=== PATIENT | female | born 1945 | race Caucasian/White ===

== ENCOUNTER 2016-05-30 05:49 | Inpatient (IN) | payer MEDICARE, OTHER ==
[2016-05-21 13:52] VITALS: Ht 170.2 cm; Wt 62.1 kg
[2016-05-21 16:42] VITALS: BP_SYST 142; RESP 18; TEMP 98.5
[2016-05-30] VITALS (18 sets, daily range): BP systolic 98–200; RESP 11–20; TEMP 97.2–98.6
[~2016-05-30] VITALS: Ht 170.2 cm; Wt 62.1 kg
[2016-05-30] MEDS ORDERED: CEFAZOLIN 2,000 MG in SODIUM CHLORIDE 0.9% 100 ML IV ONE (06:15)
[2016-05-30] MEDS ORDERED: ONDANSETRON 4 MG VIAL IV ONE (07:00)
[2016-05-30] MEDS ORDERED: SCOPOLAMINE PATCH TRANSDERM ONE (07:00)
[2016-05-30] MEDS ORDERED: LACT RINGERS 1,000 ML IV SCH (07:00)
[2016-05-30] MEDS ORDERED: GLYCOPYRROLATE 0.2 MG/ML VIAL IV ONE ×2 (07:00→11:56)
[2016-05-30] MEDS ORDERED: DEXAMETHASONE 4 MG/ML VIAL IV ONE (07:00)
[2016-05-30] MEDS ORDERED: MIDAZOLAM 2 MG/2 ML INJ IV ONE (07:00)
[2016-05-30] MEDS ORDERED: LIDOCAINE 1% BUFFERED 1 ML SYR INTRADERM PRN (07:00)
[2016-05-30] MEDS ORDERED: MORPHINE 2 MG/ML SYR IV PRN ×3 (08:00→14:00)
[2016-05-30] MEDS ORDERED: MEPERIDINE 25 MG/ML IV PRN (08:00)
[2016-05-30] MEDS ORDERED: DILAUDID 1 MG/ML AMP IV PRN ×2 (08:00→15:30)
[2016-05-30] MEDS ORDERED: MORPHINE 4 MG/ML SYR IV PRN (08:00)
[2016-05-30] MEDS ORDERED: OXYCODONE 5 MG TAB PO PRN ×2 (08:00→08:40)
[2016-05-30] MEDS ORDERED: ONDANSETRON 4 MG VIAL IV PRN ×2 (08:40→15:25)
[2016-05-30] MEDS ORDERED: NEB-ALBUTEROL 2.5 MG/3 ML INH PRN (08:40)
[2016-05-30] MEDS ORDERED: SALINE FLUSH 10 ML FLUSH PRN (08:40)
[2016-05-30] MEDS: ONDANSETRON 4 MG VIAL IV PRN ×3 (08:55→14:11)
[2016-05-30] MEDS ORDERED: amLODIPine 5 MG TAB PO SCH (09:00)
[2016-05-30] MEDS ORDERED: METOPROLOL TART 100 MG TAB PO SCH (09:00)
[2016-05-30] MEDS: CALCITRIOL 0.25 MCG CAP PO SCH (09:00)
[2016-05-30] MEDS ORDERED: METOCLOPRAMIDE 10 MG/2 ML VIAL ONE (09:59)
[2016-05-30] MEDS ORDERED: METOCLOPRAMIDE 10 MG/2 ML VIAL IV PUSH ONE (10:05)
[2016-05-30] MEDS ORDERED: BUPIVACA/EPI 0.25% PF 30ML NERVEBLOCK ONE (11:22)
[2016-05-30] MEDS ORDERED: LIDOCAINE 1% 20ML NERVEBLOCK ONE (11:22)
[2016-05-30] MEDS ORDERED: hePARIN 1,000 UNITS/ML (PORCINE) 10 ML IV ONE (11:22)
[2016-05-30] MEDS ORDERED: ROCURONIUM 50 MG VIAL IV ONE (11:56)
[2016-05-30] MEDS ORDERED: LIDOCAINE 2% SYR 5 ML IV ONE (11:56)
[2016-05-30] MEDS ORDERED: FENTANYL 100 MCG/2 ML AMP IV ONE (11:56)
[2016-05-30] MEDS ORDERED: NEOSTIGMINE 10 MG/10 ML VIAL IV ONE (11:56)
[2016-05-30] MEDS ORDERED: PROPOFOL 20 ML VIAL IV ONE (11:56)
[2016-05-30] MEDS: SEVELAMER HCL 800 MG TAB PO SCH ×2 (12:00→17:00)
[2016-05-30] MEDS ORDERED: ALBUMIN HUMAN 25GM (25%) 100 ML IV PRN (15:25)
[2016-05-30] MEDS ORDERED: SODIUM CHLORIDE 0.9% 1,000 ML IV SCH ×2 (15:25)
[2016-05-30] MEDS ORDERED: SODIUM CHLORIDE 0.9% 1,000 ML IV PRN (15:25)
[2016-05-30] MEDS: SALINE FLUSH 10 ML FLUSH SCH (20:31)
[2016-05-30] MEDS: METOPROLOL TART 50 MG TAB PO SCH (20:32)
[2016-05-30] MEDS: CINACALCET 30 MG TAB PO SCH (20:32)
[2016-05-30] MEDS: PANTOPRAZOLE 40 MG TAB PO SCH (20:33)
[2016-05-30] MEDS ORDERED: hePARIN 1,000 UNITS/1 ML VIAL ONE (21:50)
[2016-05-31] VITALS (11 sets, daily range): BP systolic 91–156; RESP 16–18; TEMP 98–99
[2016-05-31] MEDS: OXYCODONE 5 MG TAB PO PRN ×3 (03:32→18:47)
[2016-05-31] MEDS: SODIUM CHLORIDE 0.9% FLUSH BAG 500 ML IV SCH ×2 (05:20→19:34)
[2016-05-31] MEDS: SALINE FLUSH 10 ML FLUSH SCH ×2 (07:35→20:49)
[2016-05-31] MEDS: METOPROLOL TART 50 MG TAB PO SCH ×2 (07:39→14:15)
[2016-05-31] MEDS: SEVELAMER HCL 800 MG TAB PO SCH ×3 (07:47→18:46)
[2016-05-31] MEDS: CALCITRIOL 0.25 MCG CAP PO SCH (07:47)
[2016-05-31] MEDS: ONDANSETRON 4 MG VIAL IV PRN (14:15)
[2016-05-31] MEDS: PANTOPRAZOLE 40 MG TAB PO SCH (20:49)
[2016-05-31] MEDS: CINACALCET 30 MG TAB PO SCH (20:49)
[2016-06-01] VITALS (8 sets, daily range): BP systolic 146–189; RESP 16–18; TEMP 97.9–98.5
[2016-06-01] MEDS: OXYCODONE 5 MG TAB PO PRN ×4 (01:15→20:22)
[2016-06-01] MEDS: CALCITRIOL 0.25 MCG CAP PO SCH (08:30)
[2016-06-01] MEDS: METOPROLOL TART 50 MG TAB PO SCH ×2 (08:31→20:21)
[2016-06-01] MEDS: SEVELAMER HCL 800 MG TAB PO SCH ×3 (08:31→18:16)
[2016-06-01] MEDS: SALINE FLUSH 10 ML FLUSH SCH ×2 (08:32→20:23)
[2016-06-01] MEDS: amLODIPine 5 MG TAB PO SCH (13:41)
[2016-06-01] MEDS: SODIUM CHLORIDE 0.9% FLUSH BAG 500 ML IV SCH (19:32)
[2016-06-01] MEDS: PANTOPRAZOLE 40 MG TAB PO SCH (20:21)
[2016-06-01] MEDS: CINACALCET 30 MG TAB PO SCH (20:21)
[2016-06-02] VITALS (7 sets, daily range): BP systolic 160–189; RESP 16–18; TEMP 97.9–98.5
[2016-06-02] MEDS: ONDANSETRON 4 MG VIAL IV PRN ×4 (03:48→23:46)
[2016-06-02] MEDS: OXYCODONE 5 MG TAB PO PRN ×2 (03:49→16:18)
[2016-06-02] MEDS ORDERED: REMOVE SCOPALAMINE PATCH XX ONE (07:00)
[2016-06-02] MEDS: CALCITRIOL 0.25 MCG CAP PO SCH (08:43)
[2016-06-02] MEDS: METOPROLOL TART 50 MG TAB PO SCH ×2 (08:43→20:14)
[2016-06-02] MEDS: SEVELAMER HCL 800 MG TAB PO SCH ×3 (08:43→18:16)
[2016-06-02] MEDS: amLODIPine 5 MG TAB PO SCH (08:43)
[2016-06-02] MEDS: SALINE FLUSH 10 ML FLUSH SCH ×2 (08:47→20:14)
[2016-06-02] MEDS ORDERED: NON-FORMULARY MEDICATION PO SCH (10:05)
[2016-06-02] MEDS: NON-FORMULARY MEDICATION PO SCH (10:15)
[2016-06-02] MEDS: ERYTHROMYCIN 250 MG TAB PO SCH ×3 (12:34→20:14)
[2016-06-02] MEDS: METOCLOPRAMIDE 10 MG/2 ML VIAL IV PUSH SCH ×2 (12:34→16:19)
[2016-06-02] MEDS: CINACALCET 30 MG TAB PO SCH (20:14)
[2016-06-03] VITALS (8 sets, daily range): BP systolic 126–181; RESP 16–18; TEMP 97.5–99.3
[2016-06-03] MEDS: SODIUM CHLORIDE 0.9% FLUSH BAG 500 ML IV SCH (05:43)
[2016-06-03] MEDS: METOCLOPRAMIDE 10 MG/2 ML VIAL IV PUSH SCH ×3 (06:05→18:08)
[2016-06-03] MEDS: ONDANSETRON 4 MG VIAL IV PRN ×2 (06:10→14:50)
[2016-06-03] MEDS: NON-FORMULARY MEDICATION PO SCH (06:12)
[2016-06-03] MEDS: SEVELAMER HCL 800 MG TAB PO SCH ×3 (08:00→18:07)
[2016-06-03] MEDS ORDERED: NON-FORMULARY MEDICATION PO SCH (09:00)
[2016-06-03] MEDS: METOPROLOL TART 50 MG TAB PO SCH ×2 (13:23→20:41)
[2016-06-03] MEDS: CALCITRIOL 0.25 MCG CAP PO SCH (13:23)
[2016-06-03] MEDS: ERYTHROMYCIN 250 MG TAB PO SCH ×3 (13:23→20:41)
[2016-06-03] MEDS: amLODIPine 5 MG TAB PO SCH (13:23)
[2016-06-03] MEDS: SALINE FLUSH 10 ML FLUSH SCH ×2 (13:25→20:42)
[2016-06-03] MEDS: OXYCODONE 5 MG TAB PO PRN ×2 (13:29→20:41)
[2016-06-03] MEDS: CINACALCET 30 MG TAB PO SCH (20:42)
[2016-06-04] MEDS: ONDANSETRON 4 MG VIAL IV PRN ×2 (01:17→10:59)
[2016-06-04 04:50] VITALS: BP_SYST 170; RESP 18; TEMP 98.3
[2016-06-04] MEDS: SODIUM CHLORIDE 0.9% FLUSH BAG 500 ML IV SCH ×2 (06:00→19:36)
[2016-06-04] MEDS: METOCLOPRAMIDE 10 MG/2 ML VIAL IV PUSH SCH ×2 (06:14→11:00)
[2016-06-04 07:04] VITALS: BP_SYST 151; RESP 16; TEMP 98.5
[2016-06-04] MEDS: ERYTHROMYCIN 250 MG TAB PO SCH (07:35)
[2016-06-04] MEDS: amLODIPine 5 MG TAB PO SCH (08:27)
[2016-06-04] MEDS: CALCITRIOL 0.25 MCG CAP PO SCH (08:27)
[2016-06-04] MEDS: SEVELAMER HCL 800 MG TAB PO SCH ×4 (08:27→17:00)
[2016-06-04] MEDS: NON-FORMULARY MEDICATION PO SCH (08:29)
[2016-06-04] MEDS: METOPROLOL TART 50 MG TAB PO SCH ×3 (11:00→19:56)
[2016-06-04] MEDS ORDERED: METOCLOPRAMIDE 10 MG TAB PO SCH (11:00)
[2016-06-04] MEDS: SALINE FLUSH 10 ML FLUSH SCH ×2 (11:00→19:57)
[2016-06-04 11:06] VITALS: BP_SYST 135; RESP 16; TEMP 98.3
[2016-06-04] MEDS ORDERED: MISSING DOSE XX ONE (11:10)
[2016-06-04] MEDS: ONDANSETRON ODT 4 MG TAB PO PRN ×2 (11:25→19:56)
[2016-06-04 15:17] VITALS: BP_SYST 157; RESP 16; TEMP 98
[2016-06-04 19:16] VITALS: BP_SYST 155; RESP 16; TEMP 98.1
[2016-06-04] MEDS: CINACALCET 30 MG TAB PO SCH (19:56)
[2016-06-04 23:40] VITALS: BP_SYST 176; RESP 16; TEMP 98
[2016-06-05 03:32] VITALS: BP_SYST 173; RESP 16; TEMP 98.1
[2016-06-05] MEDS: SALINE FLUSH 10 ML FLUSH SCH (08:00)
[2016-06-05] MEDS: SEVELAMER HCL 800 MG TAB PO SCH ×2 (08:00→12:48)
[2016-06-05] MEDS: NON-FORMULARY MEDICATION PO SCH (09:00)
[2016-06-05 10:32] VITALS: BP_SYST 194; RESP 20; TEMP 97.7
[2016-06-05] MEDS: amLODIPine 5 MG TAB PO SCH (10:40)
[2016-06-05] MEDS: METOPROLOL TART 50 MG TAB PO SCH (10:40)
[2016-06-05] MEDS: CALCITRIOL 0.25 MCG CAP PO SCH (10:40)
[2016-06-05 11:30] VITALS: BP_SYST 147; RESP 20; TEMP 98
[2016-06-05 11:42] VITALS: BP_SYST 194; RESP 20; TEMP 97.7
== END 2016-06-05 18:13 | DRG 353 ==
LOC: ENRESERVDT → ENRESERVTM → OSEC 05:49 → SDS 08:49 → UNDOADMOB 08:49 → SDS 10:28 → 5THE 10:28 → OSEC 05-31 14:49
PROVIDERS: ADMIT Surgery; ATTEND Surgery
PROC: 02H633Z Insertion of Infusion Device into Right Atrium, Percutaneous Approach (ICD-10-PCS; 2016-05-30)
PROC: 0WQF0ZZ Repair Abdominal Wall, Open Approach (ICD-10-PCS; principal; 2016-05-30 07:25)
PROC: 5A1D60Z (ICD-10-PCS; 2016-05-30 07:25)
DX: K43.2 Incisional hernia without obstruction or gangrene (principal); N18.6 End stage renal disease; E46 Unspecified protein-calorie malnutrition; J44.9 Chronic obstructive pulmonary disease, unspecified; I48.0 Paroxysmal atrial fibrillation; I13.2 Hypertensive heart and chronic kidney disease with heart failure and with stage 5 chronic kidney disease, or end stage renal disease; E83.39 Other disorders of phosphorus metabolism; I50.22 Chronic systolic (congestive) heart failure; F32.9 Major depressive disorder, single episode, unspecified; Z99.2 Dependence on renal dialysis; E78.5 Hyperlipidemia, unspecified; K21.9 Gastro-esophageal reflux disease without esophagitis; F41.9 Anxiety disorder, unspecified; Z79.01 Long term (current) use of anticoagulants; Z86.73 Personal history of transient ischemic attack (TIA), and cerebral infarction without residual deficits; Z87.891 Personal history of nicotine dependence; Z95.2 Presence of prosthetic heart valve
CPT/HCPCS: 36415; 71010; 77001; 80048; 85025; 85610; 86704; 86706; 87340; 88302; 94799